=== PATIENT | male | born 1995 | race Caucasian/White ===

== ENCOUNTER 2022-01-25 20:43 | Emergency (ER) | payer MEDICAID ==
[~2022-01-25] VITALS: Ht 175.3 cm; Wt 112.0 kg
[~2022-01-25 20:43] MED LIST: ARIP5TAB15; METH10TA4
[2022-01-25 22:06] LABS: Basophils # (auto) 0.1 10 ^3/uL (0-0.2); Basophils % (auto) 0.6 % (0.0-2.0); Eosinophils # (auto) 0.1 10 ^3/uL (0-0.8); Eosinophils % (auto) 1.6 % (0.0-7.0); Hematocrit 49.3 % (41.0-53.0); Hemoglobin 17.1 g/dL (13.5-17.5); Lymphocytes # (auto) 2.5 10 ^3/uL (0.4-5.4); Lymphocytes % (auto) 29.5 % (10.0-50.0); Mean Corpuscular Hemoglobin 29.4 pg (28.0-32.0); Mean Corpuscular Hgb Conc. 34.7 g/dL (32.0-36.0); Mean Corpuscular Volume 84.5 fL (80.0-100.0); Monocytes # (auto) 0.6 10 ^3/uL (0-1.3); Monocytes % (auto) 7.5 % (0.0-12.0); Neutrophils # (auto) 5.2 10 ^3/uL (1.6-8.6); Neutrophils % (auto) 60.8 % (37.0-80.0); Nucleated Red Blood Cells % 0.6 %; Red Blood Cells 5.83 10^6/uL (4.5-5.90); Red Cell Distribution Width 13.8 % (11.8-14.3); White Blood Cell 8.5 10^3/uL (4.4-10.8)
[2022-01-25 22:21] LABS: Albumin 4.5 g/dL (3.4-5.0); Calcium 9.6 mg/dL (8.5-10.1); Magnesium 2.2 mg/dL (1.6-2.6); Potassium 4.1 mmol/L (3.5-5.1)
[2022-01-25 22:25] LABS: BUN/Creatinine Ratio 15.7; Bilirubin, Total 0.4 mg/dL (0.2-1.0)
[2022-01-25] MEDS ORDERED: PANTOPRAZOLE 40 MG TAB PO ONE (22:30)
[2022-01-25] MEDS ORDERED: ONDANSETRON ODT 4 MG TAB PO ONE (22:30)
[2022-01-25 22:46] LABS: INR 0.98 (0.9-1.15)
[2022-01-26] MEDS ORDERED: FAMO20TA10 PO (01:55)
[2022-01-26] MEDS ORDERED: ONDA-144 PO (01:55)
[2022-01-26 02:23] VITALS: BP 152/76
== END 2022-01-26 02:28 | disposition home or self-care (01) ==
LOC: ER 20:46
DX: R11.2 Nausea with vomiting, unspecified (principal); I10 Essential (primary) hypertension; J45.909 Unspecified asthma, uncomplicated; Z90.49 Acquired absence of other specified parts of digestive tract; Z79.899 Other long term (current) drug therapy
CPT/HCPCS: 36415; 71045; 71260; 74177; 80053; 83690; 83735; 84100; 84484; 85025; 85610; 86850; 86900; 86901; 93005; 99285; Q0162; Q9967

== ENCOUNTER 2023-04-06 17:12 | Emergency (ER) | payer MEDICAID ==
[~2023-04-06] VITALS: Ht 175.3 cm; Wt 120.4 kg
[2023-04-06 17:12] VITALS: BP 121/76; PULSE 106; RESP 16; TEMP 97.2
[~2023-04-06 17:12] MED LIST changes: +FAMO20TA10 PO; +ONDA-144 PO
[2023-04-06] MEDS ORDERED: ACE3T PO (20:36)
[2023-04-06 21:31] VITALS: O2SAT 93
== END 2023-04-06 22:40 | disposition home or self-care (01) ==
LOC: ER 17:12
DX: S72.422A Displaced fracture of lateral condyle of left femur, initial encounter for closed fracture (principal); S82.092A Other fracture of left patella, initial encounter for closed fracture; I10 Essential (primary) hypertension; E11.9 Type 2 diabetes mellitus without complications; J45.909 Unspecified asthma, uncomplicated; Z90.49 Acquired absence of other specified parts of digestive tract; Z79.899 Other long term (current) drug therapy; W18.39XA Other fall on same level, initial encounter; Y93.64 Activity, baseball; Y92.89 Other specified places as the place of occurrence of the external cause; Y99.8 Other external cause status
CPT/HCPCS: 29505; 73562; 73700

== ENCOUNTER 2023-06-28 07:22 | Inpatient (IN) | payer MEDICAID ==
[2023-06-23 14:03] LABS: Urine Bacteria None Seen /hpf (None Seen)
[2023-06-23 14:07] LABS: Basophils # (auto) 0.1 10 ^3/uL (0-0.2); Basophils % (auto) 1.2 % (0.0-2.0); Eosinophils # (auto) 0.1 10 ^3/uL (0-0.8); Eosinophils % (auto) 1.9 % (0.0-7.0); Hematocrit 48.3 % (41.0-53.0); Hemoglobin 16.2 g/dL (13.5-17.5); Lymphocytes # (auto) 2.4 10 ^3/uL (0.4-5.4); Lymphocytes % (auto) 33.7 % (10.0-50.0); Mean Corpuscular Hemoglobin 28.3 pg (28.0-32.0); Mean Corpuscular Hgb Conc. 33.6 g/dL (32.0-36.0); Mean Corpuscular Volume 84.2 fL (80.0-100.0); Monocytes # (auto) 0.5 10 ^3/uL (0-1.3); Monocytes % (auto) 7.5 % (0.0-12.0); Neutrophils % (auto) 55.7 % (37.0-80.0); Nucleated Red Blood Cells % 0.1 %; Red Blood Cells 5.74 10^6/uL (4.5-5.90); Red Cell Distribution Width 14.2 % (11.8-14.3); White Blood Cell 7.2 10^3/uL (4.4-10.8)
[2023-06-23 14:09] LABS: Urine Blood Negative /uL (Negative); Urine Clarity Clear (Clear); Urine Color Yellow (Yellow); Urine Mucus FEW (None Seen); Urine Protein, UAD 1+ (Negative); Urine Specific Gravity 1.031 (1.001-1.035); Urine Urobilinogen Normal (Negative); Urine WBC 1 /hpf (0 - 3); Urine pH 5.5 (5.0-9.0)
[2023-06-23 14:22] LABS: INR 0.99 (0.9-1.15); Partial Thromboplastin Time 29.6 SEC (24.5-34.5); Prothrombin Time 10.5 sec (9.3-11.8)
[2023-06-23 14:43] LABS: Alanine Aminotransferase 77 U/L (7-40); Albumin 4.8 g/dL (3.2-4.8); Alkaline Phosphatase 53 U/L (46-116); Anion Gap 4 (5-15); Aspartate Aminotransferase 34 U/L (13-40); BUN/Creatinine Ratio 12.7 (10.0-20.0); Bilirubin, Total 0.6 mg/dL (0.2-1.0); Blood Urea Nitrogen 13 mg/dL (9-23); Calcium 10.2 mg/dL (8.5-10.1); Carbon Dioxide 30 mmol/L (20-30); Chloride 106 mmol/L (98-107); Glucose 88 mg/dL (74-106); Potassium 4.5 mmol/L (3.5-5.1); Sodium 140 mmol/L (136-145); Total Protein 7.2 g/dL (5.7-8.2)
[~2023-06-28] VITALS: Ht 175.3 cm; Wt 116.1 kg
[~2023-06-28 07:22] MED LIST changes: -ARIP5TAB15; +BREX1TAB2 PO; -FAMO20TA10 PO; +LAM100T PO; +LEVE500T40 PO; -METH10TA4; -ONDA-144 PO; +PAR20T PO; +QUET50TA PO
[2023-06-28] MEDS ORDERED: fentaNYL CITRATE 100 MCG/2 ML VL ONE ×2 (09:00→09:01)
[2023-06-28] MEDS: ROPIVACAINE 0.5% (5MG/ML) 20ML AMPULE IJ ONE (09:15)
[2023-06-28] MEDS: ceFAZolin 2 GM/D5W50ml 50 ML IV ONE (09:31)
[2023-06-28] MEDS: EPINEPHrine HCL 1 MG/1 ML AMP ONE (10:19)
[2023-06-28] MEDS: BACITRACIN TOP OINT 1 UD PKG TOP ONE (11:50)
[2023-06-28] MEDS: BUPIVACAINE 0.25% INJ 50ML VIAL ONE (12:52)
[2023-06-28] MEDS ORDERED: MEPERIDINE HCL (25 MG/ML) 1ML VIAL ONE (12:54)
[2023-06-28] MEDS ORDERED: ACETAMINOPHEN 325 MG TAB PO PRN (13:00)
[2023-06-28 13:07] VITALS: RESP 16; O2SAT 100
[2023-06-28] MEDS: HYDROcodone-ACET 5/325MG TAB PO PRN (13:50)
[2023-06-28] MEDS ORDERED: MEPERIDINE HCL (25 MG/ML) 1ML VIAL IV PRN (14:15)
[2023-06-28] MEDS ORDERED: ONDANSETRON HCL 4 MG/2 ML VIAL IV ONE (14:15)
[2023-06-28] MEDS: HYDROmorphone HCL 2 MG/ML VL/or syr IV PRN ×2 (14:36→17:05)
[2023-06-28] MEDS ORDERED: NITROGLYCERIN 0.4 MG SL TAB SL PRN (15:45)
[2023-06-28] MEDS ORDERED: MORPHINE SULFATE INJ 2 MG/ml SYRG IV PRN (15:45)
[2023-06-28] MEDS ORDERED: hydrALAZINE HCL 20 MG/ML VL IV PRN (15:45)
[2023-06-28 16:05] VITALS: BP 148/96; PULSE 110; RESP 18; TEMP 98.6; O2SAT 94
[2023-06-28] MEDS: ONDANSETRON HCL 4 MG/2 ML VIAL IV PRN (18:48)
[2023-06-28 20:00] VITALS: PULSE 70; RESP 18; O2SAT 94
[2023-06-28 21:00] VITALS: BP 138/85; PULSE 70; RESP 18; TEMP 97.4; O2SAT 94
[2023-06-28] MEDS: levETIRAcetam 500 MG TAB PO SCH (21:43)
[2023-06-28] MEDS: LACTATED RINGER'S 1,000 ML IV SCH (21:44)
[2023-06-29] VITALS (7 sets, daily range): BP systolic 106–159; BP diastolic 74–80; PULSE 58–86; RESP 17–18; TEMP 36.6; O2SAT 94–100
[2023-06-29] MEDS ORDERED: MORPHINE SULFATE INJ 2 MG/ml SYRG IV PRN (06:30)
[2023-06-29] MEDS: HYDROmorphone HCL 2 MG/ML VL/or syr IV PRN (11:17)
[2023-06-29] MEDS ORDERED: levETIRAcetam 500 MG TAB PO SCH (22:00)
[2023-06-30] MEDS ORDERED: PARoxetine 20 MG TAB PO SCH (10:00)
== END 2023-06-29 14:40 | disposition home or self-care (01) | DRG 326 ==
LOC: SUR 07:22 → OVERFLOW 15:33 → CENTRAL 16:48
PROVIDERS: ADMIT Internal Medicine; ATTEND Internal Medicine
PROC: 0SJD4ZZ Inspection of Left Knee Joint, Percutaneous Endoscopic Approach (ICD-10-PCS; 2023-06-28)
PROC: 0SRD0NZ Replacement of Left Knee Joint with Patellofemoral Synthetic Substitute, Open Approach (ICD-10-PCS; principal; 2023-06-28 10:45)
DX: M22.42 Chondromalacia patellae, left knee (principal); E66.9 Obesity, unspecified; M23.52 Chronic instability of knee, left knee; F31.9 Bipolar disorder, unspecified; I10 Essential (primary) hypertension; G47.30 Sleep apnea, unspecified; J45.909 Unspecified asthma, uncomplicated; Z68.37 Body mass index [BMI] 37.0-37.9, adult; Z88.8 Allergy status to other drugs, medicaments and biological substances
CPT/HCPCS: 36415; 73560; 76000; 80053; 81001; 85025; 85610; 85730; 93005; C1713; G0378; J0171; J2405; J3490

== ENCOUNTER 2023-07-02 14:52 | Emergency (ER) | payer MEDICAID ==
[~2023-07-02] VITALS: Ht 175.3 cm; Wt 115.4 kg
[~2023-07-02 14:52] MED LIST changes: -LAM100T PO
[2023-07-02] MEDS: LACTULOSE 20Gm/30ML SOLN PO ONE (15:53)
[2023-07-02] MEDS ORDERED: LACT10SO3 PO (15:58)
[2023-07-02] MEDS ORDERED: IBUP-1456 PO (15:58)
[2023-07-02] MEDS ORDERED: MAGNESIUM CITRATE SOLUTION 300 ML BTL PO ONE (16:00)
[2023-07-02 16:14] VITALS: BP 132/81; PULSE 75; RESP 18; TEMP 98.7; O2SAT 97
== END 2023-07-02 16:16 | disposition home or self-care (01) ==
LOC: ER 14:52
DX: K59.00 Constipation, unspecified (principal); I10 Essential (primary) hypertension; E11.9 Type 2 diabetes mellitus without complications; J45.909 Unspecified asthma, uncomplicated; F41.9 Anxiety disorder, unspecified; F15.90 Other stimulant use, unspecified, uncomplicated; Z98.890 Other specified postprocedural states; Z88.8 Allergy status to other drugs, medicaments and biological substances; Z91.040 Latex allergy status; Z79.899 Other long term (current) drug therapy
CPT/HCPCS: 74018

== ENCOUNTER 2023-08-12 00:22 | Emergency (ER) | payer MEDICAID ==
[~2023-08-12] VITALS: Ht 175.3 cm; Wt 113.6 kg
[~2023-08-12 00:22] MED LIST changes: +IBUP-1456 PO; +LACT10SO3 PO
[2023-08-12 00:35] VITALS: BP 125/76; PULSE 117; RESP 18; TEMP 99.7; O2SAT 97
[2023-08-12] MEDS: KETOROLAC TROMETH 60MG/2ML VIAL IM ONE (01:29)
[2023-08-12] MEDS: ACETAMINOPHEN 500 MG TAB PO ONE (01:29)
[2023-08-12] MEDS: ONDANSETRON ODT 4 MG TAB PO ONE (01:39)
[2023-08-12] MEDS ORDERED: IBUP-1455 PO (02:13)
[2023-08-12] MEDS ORDERED: ACET500T58 PO (02:13)
== END 2023-08-12 02:29 | disposition home or self-care (01) ==
LOC: ER 00:22
DX: L55.0 Sunburn of first degree (principal); J45.909 Unspecified asthma, uncomplicated; E11.9 Type 2 diabetes mellitus without complications; I10 Essential (primary) hypertension; F12.10 Cannabis abuse, uncomplicated; Z91.040 Latex allergy status
CPT/HCPCS: 16000; 99283; J1885; Q0162

== ENCOUNTER 2023-08-14 22:10 | Emergency (ER) | payer MEDICAID ==
[~2023-08-14] VITALS: Ht 175.3 cm; Wt 119.2 kg
[~2023-08-14 22:10] MED LIST changes: +ACET500T58 PO; +IBUP-1455 PO
[2023-08-15 00:50] VITALS: BP 136/87; PULSE 68; RESP 18; TEMP 98.5; O2SAT 98
[2023-08-15] MEDS: SODIUM CHLORIDE 0.9% 1,000 ML IV ONE (01:07)
== END 2023-08-15 01:00 | disposition home or self-care (01) ==
LOC: ER 22:10
DX: T20.10XD Burn of first degree of head, face, and neck, unspecified site, subsequent encounter (principal); T21.11XD Burn of first degree of chest wall, subsequent encounter; T21.1 Burn of first degree of trunk; T22.10XD Burn of first degree of shoulder and upper limb, except wrist and hand, unspecified site, subsequent encounter; T31.0 Burns involving less than 10% of body surface; E86.0 Dehydration; I10 Essential (primary) hypertension; E11.9 Type 2 diabetes mellitus without complications; F41.9 Anxiety disorder, unspecified; J45.909 Unspecified asthma, uncomplicated; F15.90 Other stimulant use, unspecified, uncomplicated; Z98.890 Other specified postprocedural states; Z91.040 Latex allergy status; Z79.899 Other long term (current) drug therapy; Z88.8 Allergy status to other drugs, medicaments and biological substances; X08.8XXD Exposure to other specified smoke, fire and flames, subsequent encounter
CPT/HCPCS: 96360; 99283; J7030

== ENCOUNTER 2023-10-15 13:04 | Emergency (ER) | payer MEDICAID ==
[~2023-10-15] VITALS: Ht 175.3 cm; Wt 119.7 kg
[2023-10-15] MEDS: KETOROLAC TROMETH 60MG/2ML VIAL IM ONE (14:20)
[2023-10-15] MEDS ORDERED: BACL10TA PO (14:30)
[2023-10-15] MEDS ORDERED: PRED20TA2 PO (14:30)
[2023-10-15 14:35] VITALS: BP 146/78; PULSE 87; RESP 17; TEMP 98.7; O2SAT 97
== END 2023-10-15 14:38 | disposition home or self-care (01) ==
LOC: ER 13:04
DX: M54.41 Lumbago with sciatica, right side (principal); E66.01 Morbid (severe) obesity due to excess calories; I10 Essential (primary) hypertension; E11.9 Type 2 diabetes mellitus without complications; F41.9 Anxiety disorder, unspecified; J45.909 Unspecified asthma, uncomplicated; F15.90 Other stimulant use, unspecified, uncomplicated; Z68.39 Body mass index [BMI] 39.0-39.9, adult; Z98.890 Other specified postprocedural states; Z88.8 Allergy status to other drugs, medicaments and biological substances; Z91.040 Latex allergy status
CPT/HCPCS: 96372; 99283; J1885

== ENCOUNTER 2024-07-27 15:24 | Emergency (ER) | payer MEDICAID ==
[~2024-07-27] VITALS: Ht 175.3 cm; Wt 115.8 kg
[~2024-07-27 15:24] MED LIST changes: +BACL10TA PO; +FAMO20TA10 PO; +PRED20TA2 PO
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
[2024-07-27 16:23] LABS: Basophils # (auto) 0.1 10 ^3/uL (0-0.2); Eosinophils # (auto) 0.1 10 ^3/uL (0-0.8); Monocytes # (auto) 0.5 10 ^3/uL (0-1.3); Monocytes % (auto) 5.6 % (0.0-12.0); Neutrophils # (auto) 5.6 10 ^3/uL (1.6-8.6); White Blood Cell 8.3 10^3/uL (4.4-10.8)
[2024-07-27 16:32] LABS: Basophils % (auto) 0.6 % (0.0-2.0); Hematocrit 53.9 % (41.0-53.0); Hemoglobin 18.7 g/dL (13.5-17.5); Lymphocytes # (auto) 2.2 10 ^3/uL (0.4-5.4); Mean Corpuscular Hgb Conc. 34.7 g/dL (32.0-36.0); Mean Corpuscular Volume 83.7 fL (80.0-100.0); Neutrophils % (auto) 66.8 % (37.0-80.0); Nucleated Red Blood Cells % 0.2 %; Platelet Count (auto) 307 10^3/uL (140-450); Red Blood Cells 6.44 10^6/uL (4.5-5.90)
[2024-07-27 16:40] LABS: Alkaline Phosphatase 60 U/L (46-116); Anion Gap 12 (5-15); BUN/Creatinine Ratio 12.6 (10.0-20.0); Bilirubin, Total 0.9 mg/dL (0.2-1.0); Blood Urea Nitrogen 14 mg/dL (9-23); Carbon Dioxide 26 mmol/L (20-31); Chloride 105 mmol/L (98-107); Glucose 85 mg/dL (74-106); Potassium 3.8 mmol/L (3.5-5.1); Sodium 143 mmol/L (136-145); Total Protein 7.9 g/dL (5.7-8.2)
[2024-07-27 16:41] LABS: Alanine Aminotransferase 124 U/L (7-40); Aspartate Aminotransferase 78 U/L (<34); Calcium 11.1 mg/dL (8.7-10.4)
[2024-07-27 16:42] LABS: Albumin 5.6 g/dL (3.2-4.8)
[2024-07-27 16:50] VITALS: PULSE 80; RESP 16; O2SAT 94
[2024-07-27] MEDS: SODIUM CHLORIDE 0.9% 1,000 ML IV ONE (17:24)
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
[2024-07-27 17:49] LABS: Amphetamine Screen, Urine Neg (NEGATIVE); Barbiturate Scree,Urine Neg (NEGATIVE); Benzodiazephine Screen, Urine Neg (NEGATIVE); Cannabinoid Screen, Urine Pos (NEGATIVE); Cocaine Screen, Urine Neg (NEGATIVE); Opiate Scree,Urine Neg (NEGATIVE); Phencyclidine Screen, Urine Neg (NEGATIVE)
[2024-07-27] MEDS: LORazepam 0.5 MG TAB PO ONE (23:06)
[2024-07-27] MEDS: LIDOCAINE VISCOUS 2% 15ML UD PO ONE (23:06)
[2024-07-27] MEDS: MAALOX PLUS or MAALOX 30 ML PO ONE (23:06)
[2024-07-28] MEDS: ONDANSETRON HCL 4 MG/2 ML VIAL IV ONE (09:24)
[2024-07-28] MEDS: LORazepam 2MG/ML-1ML VIAL IV ONE (09:24)
[2024-07-28] MEDS: levETIRAcetam 500 MG TAB PO SCH (09:34)
[2024-07-28] MEDS: PARoxetine 20 MG TAB PO SCH (09:35)
[2024-07-28] MEDS: PANTOPRAZOLE 40 MG TAB PO ONE (14:41)
[2024-07-28] MEDS: LOPERAMIDE HCL 2 MG CAP/TAB PO ONE (14:41)
[2024-07-28] MEDS: ACETAMINOPHEN 325 MG TAB PO ONE (14:41)
[2024-07-28] MEDS: SODIUM CHLORIDE 0.9% 1,000 ML IV ONE (14:43)
[2024-07-28] MEDS ORDERED: ONDANSETRON HCL 4 MG/2 ML VIAL IV PRN (15:45)
[2024-07-28] MEDS ORDERED: LORazepam 2MG/ML-1ML VIAL IV PRN (15:45)
[2024-07-28] MEDS ORDERED: ACETAMINOPHEN 325 MG TAB PO PRN (15:45)
[2024-07-28 18:29] VITALS: BP 131/84; PULSE 67; RESP 18; TEMP 97.9; O2SAT 95
[2024-07-28] MEDS ORDERED: QUEtiapine FUMARATE 25 MG TAB PO SCH (22:00)
== END 2024-07-28 18:46 ==
LOC: ER 15:34
DX: R45.851 Suicidal ideations (principal); R79.89 Other specified abnormal findings of blood chemistry; I10 Essential (primary) hypertension; E11.9 Type 2 diabetes mellitus without complications; E78.5 Hyperlipidemia, unspecified; F31.9 Bipolar disorder, unspecified; F41.9 Anxiety disorder, unspecified; F43.10 Post-traumatic stress disorder, unspecified; J45.909 Unspecified asthma, uncomplicated; Z90.49 Acquired absence of other specified parts of digestive tract; Z79.899 Other long term (current) drug therapy
CPT/HCPCS: 36415; 80053; 80307; 80320; 84443; 85025; 96360; 96361; 99285; J2060; J2405; J7030

== ENCOUNTER 2024-09-28 11:44 | Emergency (ER) | payer MEDICAID ==
[~2024-09-28] VITALS: Ht 175.3 cm; Wt 113.5 kg
--- NOTE | 2024-09-28 12:25 | ED.PDOC ---
HPI (NEURO) HPI Comments THIS IS A 29 YEAR-OLD MALE, WITH A PMHX OF EPILEPSY AND ASTHMA, WHO PRESENTS TO THE ED WITH A CHIEF COMPLAINT OF HEADACHE WITH ASSOCIATED R NECK PAIN OF X4 DAYS AGO. PATIENT REPORTS HEAD "PRESSURE" RADIATING FROM THE RIGHT SIDE OF THE HEAD TO THE LEFT. PATIENT ADDITIONALLY REPORTS PRESSURE TO THE BACK OF EYES WITH LIGHT SENSITIVITY. PATIENT STATES HE TOOK IBUPROFEN WITH NO RELIEF. PT WENT TO URGENT CARE YESTERDAY AND GOT TORADOL PAIN INJECTION, NOT HELP. PATIENT HAS NO FURTHER COMPLAINTS AT THIS TIME. PATIENT DENIES FURTHER ASSOCIATED SYMPTOMS OF FEVER, CHILLS, LOC, DIZZINESS, OR N/V/D. PATIENT IS ALERT, ORIENTED X 4, AND HAS STEADY GAIT. Chief Complaint: Headache Time Seen by MD: 12:07 Primary Care Provider: Julio Nolacso Notes: Nurses Notes, Medications, Allergies Information Source: Patient Mode of Arrival: Ambulatory Severity: Moderate Headache Severity: Moderate Timing: Days Duration: Since onset, Days Prehospital treatment: None Headache Location: Generalized, Frontal, Parietal, Temporal Onset: At rest, With light exertion, With heavy exertion Circumstances: Spontaneous Associated Signs and Symptoms: Headache Past Medical History PAST MEDICAL HISTORY: Anxiety, Asthma, Depression, DM, HTN, Seizures Surgical History: Appendectomy Family History Family History: Reviewed,noncontributory to illness Social History Smoker: Non-Smoker Alcohol: Denies ETOH Use Drugs: Marijuana Lives In: Home Constitutional: reports: others (ANXIOUS ); denies: chills, diaphoresis, fatigue, fever, malaise, sweats, weakness EENTM: denies: blurred vision, double vision, ear bleeding, ear discharge, ear drainage, ear pain, ear ringing, eye pain, eye redness, hearing loss, mouth pain, mouth swelling, nasal discharge, nose bleeding, nose congestion, nose pain, photophobia, tearing, throat pain, throat swelling, voice changes, others Respiratory: denies: cough, hemoptysis, orthopnea, SOB at rest, shortness of breath, SOB with excertion, stridor, wheezing, others Cardiovascular: denies: chest pain, dizzy spells, diaphoresis, Dyspnea on exertion, edema, irregular heart beat, left arm pain, lightheadedness, palp itations, PND, syncope, others Gastrointestinal: reports: nausea; denies: abdomen distended, abdominal pain, blood streaked bowels, constipated, diarrhea, dysphagia, difficulty swallowing, hematemesis, melena, poor appetite, poor fluid intake, rectal bleeding, rectal pain, vomiting, others Genitourinary: denies: burning, dysuria, flank pain, frequency, hematuria, incontinence, penile discharge, penile sore, pain, testicle pain, testicle swelling, urgency, others Neurological: reports: headache; denies: dizziness, fainting, left sided numbness, left sided weakness, numbness, paresthesia, pre-existing deficit, right sided numbness, right sided weakness, seizure, speech problems, tingling, tremors, weakness, others Musculoskeletal: denies: back pain, gout, joint pain, joint swelling, muscle pain, muscle stiffness, neck pain, others Integumetry: denies: bruises, change in color, change in hair/nails, dryness, laceration, lesions, lumps, rash, wounds, others Allergic/Immunocompromised: denies: Difficulty Healing, Frequent Infections, Hives, Itching, others Hematologic/Lymphatic: denies: anemia, blood clots, easy bleeding, easy bruising, swollen glands, others Endocrine: denies: excessive hunger, excessive sweating, excessive thirst, excessive urination, flushing, intolerance to cold, intolerance to heat, unexplained weight gain, unexplained weight loss, others Psychiatric: denies: anxiety, bipolar disorder, depression, hopeless, panic disorder, schizophrenia, sleepless, suicidal, others All Other Systems: Reviewed and Negative Physical Exam General Appearance: Mild Distress, Obese, Other (ANXIOUS ) HEENT: Normal ENT Inspection, PERRL/EOMI, Pharynx Normal, TMs Normal Neck: Full Range of Motion, Non-Tender, Normal, Normal Inspection Respiratory: Chest Non-Tender, Lungs Clear, No Accessory Muscle Use, No Respiratory Distress, Normal Breath Sounds Cardiovascular: No Edema, No JVD, No Murmur, No Gallop, Normal Peripheral Pulses, Regular Rate/Rhythm Breast Exam: Deferred Gastrointestinal: No Organomegaly, Non Tender, No Pulsatile Mass, Normal Bowel Sounds, Soft Genitalia: Deferred Pelvic: Deferred Rectal: Deferred Extremities: No calf tenderness, Normal capillary refill, Normal inspection, Normal range of motion, Non-tender, No pedal edema Musculoskeletal : Apperance: Normal Neurologic: Alert, developer advisor II-XII nml as Tested, Headache, No Motor Deficits, Normal Affect, Normal Mood, No Sensory Deficits Cerebellar Function: Normal Reflexes: Normal Skin: Dry, Normal Color, Warm Peripheral Pulses: 2+ carotid (R), 2+ carotid (L) Lymphatic: No Adenopathy Was a procedure done? Was a procedure done?: No Differential Diagnosis (SZ) Seizure: Hyperventilation Headache: Cluster, Migraine, Intracerebral Hemorrhage, Mass Lesion, Sinusitis X-Ray, Labs, Meds, VS Vital Signs Date Time Temp Pulse Resp B/P (MAP) Pulse Ox O2 Delivery O2 Flow Rate FiO2 09/28/24 11:46 98.3 62 19 143/79 98 98.3 [place] [id number] Ph: [phone] DIAGNOSTIC IMAGING Diagnostic Imaging Report : [id number] Signed PATIENT: ELIUD HUYNH ACCT: [id number] UNIT: [id number] : 1995 LOC: ER ROOM / BED: / AGE / SEX: 29 / M ADM STATUS: REG ER SERVICE 1200 ORDERING PHYSICIAN: ADDIE ALBERTS PROCEDURE(s): HWOCT - HEAD WITHOUT CONTRAST REASON: RIGHT HEAD PAIN, HX OF SEIZURE ORDER NUMBER(s): [id number], ACCESSION NUMBER(s): [id number] EXAM: CT HEAD WITHOUT CONTRAST INDICATION: RIGHT HEAD PAIN, HX OF SEIZURE TECHNIQUE: CT of the head without intravenous contrast. Radiation Dose Information: CT Dose: CTDI volume is 53.25 mGy. Dose-length product is 863.9 mGy*cm The dose indicators for CT are the volume Computed Tomography (CT) Dose Index (CTDIvol) and the Dose Length Product (DLP), and are measured in units of mGy and mGy-cm, respectively. These indicators are not patient dose, but values generated from the CT scanner acquisition factors. The report includes radiation exposure data for exposures received during this examination. COMPARISON: None FINDINGS: There is no evidence of acute intracranial hemorrhage, extra-axial collection, mass effect, midline shift, herniation or hydrocephalus. The ventricles, sulci and cisterns are age appropriate. The thakur-white differentiation is intact. The visualized paranasal sinuses and mastoid air cells are clear. The surrounding soft tissues and osseous structures are unremarkable. IMPRESSION: No acute intracranial abnormality. X-Ray, Labs, Meds, VS Comment EXTERNAL MEDICAL RECORDS REVIEWED: [NONE] INDEPENDENT HISTORIANS: [NONE] SOCIAL DETERMINANTS OF HEALTH: [NONE] LABS ORDERED: NONE REVIEWED AND INTERPRETED RESULTS: NONE IMAGING ORDERED: HEAD CT WITHOUT CONTRAST TREATMENTS ORDERED: PT DECLINED PAIN MEDICATION ONLY RX. PROCEDURES PERFORMED: NONE CRITICAL CARE TIME: NONE I HAVE DISCUSSED THE PATIENT WITH THE ATTENDING PHYSICIAN, DR. MCCOY, AND HE AGREES WITH THE PATIENT'S PLAN OF CARE AND DISPOSITION. BASED ON HISTORY OF PRESENT ILLNESS, AND PHYSICAL EXAM, PATIENT WILL BE DISCHARGED HOME. DISCUSSED PLAN FOR DISCHARGE HOME WITH RX IMITREX 50MG. MEDICATION WARNINGS GIVEN. SHARED DECISION MAKING: DISCUSSED WITH PATIENT THAT THEIR WORKUP WAS NORMAL. PATIENT INSTRUCTED TO FOLLOW UP WITH PRIMARY CARE PROVIDER IN 1-2 DAYS FOR RE- EVALUATION OF SYMPTOMS. PATIENT VERBALIZES UNDERSTANDING TO RETURN TO ED FOR NEW OR WORSENING SYMPTOMS OR IF FOLLOW UP WITH PCP CANNOT BE OBTAINED. PATIENT FEELS COMFORTABLE GOING HOME AT THIS TIME. ALL QUESTIONS ADDRESSED AT TIME OF DISCHARGE. Images Reviewed?: Images reviewed and evaluated by me Time of 1ST Reevaluation: 13:00 Reevaluation 1ST: Improved Patient Education/Counseling: Diagnosis, Treatment, Need For Follow Up Family Education/Counseling: Diagnosis, Treatment, No Family Present Medical Screening: No EMC Exist At This Time Departure 1 Departure Time of Disposition: 13:10 Impression: Primary Impression: Migraine headache Qualified Codes: G43.909 - Migraine, unspecified, not intractable, without status migrainosus Disposition: HOME / SELF CARE / HOMELESS Condition: Stable Additional Instructions: FOLLOW-UP WITH PCP IN 1 TO 2 DAYS. TAKE MEDICATIONS PRESCRIBED. RETURN TO ED FOR ANY NEW OR WORSENING SYMPTOMS. e-Prescriptions Sumatriptan Succinate (Imitrex) 50 Mg Tab 50 MG PO BID, #20 TAB Prov: ADDIE ALBERTS 09/28/24 Discharged With: Self, Relative Critical Care Note Critical Care Time?: No Stability Stability form required: No Heart Score Heart Score: Heart Score Response (Comments) Value History N/A 0 EKG N/A 0 Age N/A 0 Risk Factors N/A 0 Troponin N/A 0 Total 0 I personally scribed for ADDIE ALBERTS ([email or web address]) on 09/28/24 at 12:25. Electronically submitted by Blanca Reynolds ([email or web address]). I personally scribed for ADDIE ALBERTS ([email or web address]) on 09/28/24 at 12:26. Electronically submitted by Blanca Reynolds ([email or web address]). I personally scribed for ADDIE ALBERTS ([email or web address]) on 09/28/24 at 12:43. Electronically submitted by Blanca Reynolds ([email or web address]). I personally scribed for ADDIE ALBERTS ([email or web address]) on 09/28/24 at 12:54. Electronically submitted by Blanca Reynolds ([email or web address]). ADDIE ALBERTS Sep 28, 2024 12:25
--- NOTE | 2024-09-28 12:41 | DVH ---
EXAM: CT HEAD WITHOUT CONTRAST INDICATION: RIGHT HEAD PAIN, HX OF SEIZURE TECHNIQUE: CT of the head without intravenous contrast. Radiation Dose Information: CT Dose: CTDI volume is 53.25 mGy. Dose-length product is 863.9 mGy*cm The dose indicators for CT are the volume Computed Tomography (CT) Dose Index (CTDIvol) and the Dose Length Product (DLP), and are measured in units of mGy and mGy-cm, respectively. These indicators are not patient dose, but values generated from the CT scanner acquisition factors. The report includes radiation exposure data for exposures received during this examination. COMPARISON: None FINDINGS: There is no evidence of acute intracranial hemorrhage, extra-axial collection, mass effect, midline s hift, herniation or hydrocephalus. The ventricles, sulci and cisterns are age appropriate. The thakur-white differentiation is intact. The visualized paranasal sinuses and mastoid air cells are clear. The surrounding soft tissues and osseous structures are unremarkable. IMPRESSION: No acute intracranial abnormality.
[2024-09-28] MEDS ORDERED: SUMA50TA2 PO (12:55)
[2024-09-28 13:06] VITALS: BP 128/91; PULSE 73; RESP 16; TEMP 98.2; O2SAT 96
== END 2024-09-28 13:08 | disposition home or self-care (01) ==
LOC: ER 11:44
DX: G43.909 Migraine, unspecified, not intractable, without status migrainosus (principal); E11.9 Type 2 diabetes mellitus without complications; I10 Essential (primary) hypertension; J45.909 Unspecified asthma, uncomplicated; Z90.49 Acquired absence of other specified parts of digestive tract
CPT/HCPCS: 70450

== ENCOUNTER 2024-09-29 18:39 | Emergency (ER) | payer MEDICAID ==
[~2024-09-29] VITALS: Ht 175.3 cm; Wt 113.2 kg
[~2024-09-29 18:39] MED LIST changes: +SUMA50TA2 PO
--- NOTE | 2024-09-29 18:51 | ECG ---
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
--- NOTE | 2024-09-29 19:16 | ED.PDOC ---
History of Present Illness HPI Comments 29-year-old male who came to ER for chest pains. Patient has a history of hypertension, asthma and seizures. Patient was seen here yesterday for complaints of headaches and right-sided neck, diagnosed with cluster headaches. Patient coming with similar complaints, now with lower abdominal pain for the past 3 days with nausea and diarrhea. Few hours ago patient started experiencing diffuse chest pains as well, worsens with deep breathing. Chief Complaint: Chest Pain Time Seen by MD: 19:16 Primary Care Provider: Julio Reviewed Notes: Nurses Notes Allergies: Coded Allergies: Latex (Unverified Allergy, Mild, hives, 06/23/23) Lisdexamfetamine (Unverified Adverse Reaction, Severe, Blurry vision, loss of vision, 06/23/23) Aripiprazole (Unverified Adverse Reaction, Intermediate, Drowsy, 06/23/23) Home Meds Active Scripts Sumatriptan Succinate (Imitrex) 50 Mg Tab, 50 MG PO BID, #20 TAB Prov:ADDIE ALBERTS 09/28/24 Famotidine (PEPCID TABLET) 20 Mg Tb, 1 TAB PO BID PRN, #60 TAB 5 Refills Prov:GIGI US MD 07/24/24 Prednisone (Prednisone) 20 Mg Tab, 40 MG PO DAILY, #24 TAB Prov:ADDIE ALBERTS 10/15/23 Baclofen (Baclofen) 10 Mg Tab, 10 MG PO BID, #20 TAB Prov:ADDIE ALBERTS 10/15/23 Ibuprofen Micronized (Ibuprofen) 800 Mg Tab, 800 MG PO Q8HP PRN, #20 TAB Prov:SHANNON HUGHES PAC 08/12/23 Acetaminophen (Acetaminophen) 500 Mg Tab, 500 MG PO Q4HP PRN, #30 TAB Prov:SHANNON HUGHES PAC 08/12/23 Ibuprofen (Ibuprofen) 800 Mg Tab, 1 TAB PO TID, #30 TAB Prov:ADDIE ALBERTS 07/02/23 Lactulose (Lactulose) 10 Gm/15 Ml Елена, 30 ML PO BID PRN, #350 ML Prov:ADDIE ALBERTS 07/02/23 Reported Medications Quetiapine Fumerate (Seroquel) 50 Mg Tab, 50 MG PO HS, TAB 06/23/23 Levetiracetam (Keppra) 500 Mg Tab, 750 MG PO BID, TAB 06/23/23 Paroxetine (PAXIL TABLET) 20 Mg Tb, 10 MG PO BID, TAB 06/23/23 Brexpiprazole (Rexulti) 0.5 Mg Tab, 0.5 MG PO HS, TAB 06/23/23 Information Source: Patient Mode of Arrival: Ambulatory Severity: Moderate Timing: Hours Duration: Intermittent Past Medical History PAST MEDICAL HISTORY: Anxiety, Asthma, Depression, HTN, Seizures Surgical History: Appendectomy Family History Family History: Reviewed,noncontributory to illness Social History Smoker: Non-Smoker Alcohol: Denies ETOH Use Drugs: Marijuana Lives In: Home Constitutional: denies: chills, diaphoresis, fatigue, fever, malaise, sweats, weakness, others EENTM: denies: blurred vision, double vision, ear bleeding, ear discharge, ear drainage, ear pain, ear ringing, eye pain, eye redness, hearing loss, mouth jo n, mouth swelling, nasal discharge, nose bleeding, nose congestion, nose pain, photophobia, tearing, throat pain, throat swelling, voice changes, others Respiratory: denies: cough, hemoptysis, orthopnea, SOB at rest, shortness of breath, SOB with excertion, stridor, wheezing, others Cardiovascular: reports: chest pain; denies: dizzy spells, diaphoresis, Dyspnea on exertion, edema, irregular heart beat, left arm pain, lightheadedness, palpitations, PND, syncope, others Gastrointestinal: reports: abdominal pain, diarrhea, nausea; denies: abdomen distended, blood streaked bowels, constipated, dysphagia, difficulty swallowing, hematemesis, melena, poor appetite, poor fluid intake, rectal bleeding, rectal pain, vomiting, others Genitourinary: denies: burning, dysuria, flank pain, frequency, hematuria, incontinence, penile discharge, penile sore, pain, testicle pain, testicle swelling, urgency, others Neurological: reports: headache; denies: dizziness, fainting, left sided numbness, left sided weakness, numbness, paresthesia, pre-existing deficit, right sided numbness, right sided weakness, seizure, speech problems, tingling, tremors, weakness, others Musculoskeletal: reports: neck pain; denies: back pain, gout, joint pain, joint swelling, muscle pain, muscle stiffness, others Integumetry: denies: bruises, change in color, change in hair/nails, dryness, laceration, lesions, lumps, rash, wounds, others Allergic/Immunocompromised: denies: Difficulty Healing, Frequent Infections, Hives, Itching, others Hematologic/Lymphatic: denies: anemia, blood clots, easy bleeding, easy bruis ing, swollen glands, others Endocrine: denies: excessive hunger, excessive sweating, excessive thirst, exc essive urination, flushing, intolerance to cold, intolerance to heat, unexplained weight gain, unexplained weight loss, others Psychiatric: denies: anxiety, bipolar disorder, depression, hopeless, panic disorder, schizophrenia, sleepless, suicidal, others Physical Exam General Appearance: No Apparent Distress, Normal HEENT: Normal ENT Inspection, Pharynx Normal, TMs Normal Neck: Full Range of Motion, Non-Tender, Normal, Normal Inspection Respiratory: Chest Non-Tender, Lungs Clear, No Accessory Muscle Use, No Resp iratory Distress, Normal Breath Sounds Cardiovascular: No Edema, No JVD, No Murmur, No Gallop, Normal Peripheral Pulses, Regular Rate/Rhythm Breast Exam: Deferred Gastrointestinal: No Organomegaly, Non Tender, No Pulsatile Mass, Normal Bowel Sounds, Soft Genitalia: Deferred Pelvic: Deferred Rectal: Deferred Extremities: No calf tenderness, Normal capillary refill, Normal inspection, Normal range of motion, Non-tender, No pedal edema Musculoskeletal : Apperance: Normal Neurologic: Alert, ammunition storage superintendent II-XII nml as Tested, No Motor Deficits, Normal Affect, Normal Mood, No Sensory Deficits Cerebellar Function: Normal Reflexes: Normal Skin: Dry, Normal Color, Warm Lymphatic: No Adenopathy Was a procedure done? Was a procedure done?: No Differential Dx Considerations may include: Anemia. Migraine headaches. Gastroenteritis. Chest pain. Musculoskeletal pain. Costochondritis X-Ray, Labs, Meds, VS Vital Signs Date Time Temp Pulse Resp B/P (MAP) Pulse Ox O2 Delivery O2 Flow Rate FiO2 09/29/24 20:48 88 17 98 Room Air 09/29/24 20:48 98.3 88 17 124/84 (97) 98 98.3 09/29/24 20:00 57 09/29/24 18:49 63 09/29/24 18:42 98.1 70 18 127/81 100 98.1 Lab Test 09/29/24 19:55 09/29/24 18:56 Range/Units Troponin I High Sensitivity < 3 L < 3 L </=54 ng/L White Blood Count 9.2 4.4-10.8 10^3/uL Red Blood Count 5.95 H 4.5-5.90 10^6/uL Hemoglobin 17.2 13.5-17.5 g/dL Hematocrit 50.3 41.0-53.0 % Mean Corpuscular Volume 84.5 80.0-100.0 fL Mean Corpuscular Hemoglobin 28.9 28.0-32.0 pg Mean Corpuscular Hemoglobin Concent 34.2 32.0-36.0 g/dL Red Cell Distribution Width 14.5 H 11.8-14.3 % Platelet Count 320 140-450 10^3/uL Mean Platelet Volume 6.9 6.9-10.8 fL Neutrophils (%) (Auto) 61.0 37.0-80.0 % Lymphocytes (%) (Auto) 31.2 10.0-50.0 % Monocytes (%) (Auto) 5.9 0.0-12.0 % Eosinophils (%) (Auto) 1.2 0.0-7.0 % Basophils (%) (Auto) 0.7 0.0-2.0 % Neutrophils # (Auto) 5.6 1.6-8.6 10 ^3/uL Lymphocytes # (Auto) 2.9 0.4-5.4 10 ^3/uL Monocytes # (Auto) 0.5 0-1.3 10 ^3/uL Eosinophils # (Auto) 0.1 0-0.8 10 ^3/uL Basophils # (Auto) 0.1 0-0.2 10 ^3/uL Nucleated Red Blood Cells 0.1 % Sodium Level 142 136-145 mmol/L Potassium Level 4.1 3.5-5.1 mmol/L Chloride Level 107 98-107 mmol/L Carbon Dioxide Level 25 20-31 mmol/L Anion Gap 10 5-15 Blood Urea Nitrogen 10 9-23 mg/dL Creatinine 1.05 0.700-1.30 mg/dL Glomerular Filtration Rate Calc 100 >90 mL/min BUN/Creatinine Ratio 9.5 L 10.0-20.0 Serum Glucose 90 74-106 mg/dL Calcium Level 10.0 8.7-10.4 mg/dL Current Medications Medications (Trade) Dose Ordered Sig/Emelina Route Start Time Stop Time Status Last Admin Acetaminophen (Tylenol Tablet) 650 mg ONCE ONCE PO 09/29/24 19:15 09/29/24 19:16 DC 09/29/24 20:47 Procedure: XY KUB ABDOMEN SINGLE VIEW Study Date and Requested Time: 09/29/2024 07:13 PM Technique: 2 views of the abdomen and pelvis available for evaluation. History: r/o constipation Comparison: XY KUB ABDOMEN SINGLE VIEW on DOS: 07/02/23 Findings/ Impression: Nonspecific bowel gas pattern. No evidence of bowel obstruction or ileus. Small to moderate amount of fecal material within the colon. No abnormal calcifications are noted. No evidence of acute osseous abnormalities. The lung bases are outside the field of view. T RADIOGRAPH Indication: cp Technique: Single frontal view of the chest was obtained Comparison: XY CHEST PORTABLE on DOS: 02/13/23, CHEST XRAY 1 VIEW on DOS: 01/25/22, CXR1 on DOS: 01/25/22 FINDINGS: Lines and Tubes: None Lungs: No focal consolidation. Pleura: No effusion. No pneumothorax. Cardiomediastinal contours: Unremarkable Bones: No acute osseous abnormality. IMPRESSION: No acute cardiopulmonary disease. Time of 1ST Reevaluation: 19:13 Reevaluation 1ST: Unchanged Time of 2ND Reevaluation: 21:12 Reevaluation 2ND: Improved Patient Education/Counseling: Diagnosis, Treatment, Prognosis, Need For Follow Up Family Education/Counseling: No Family Present Comments Patient reports he feels better he does not want to stay any longer he wants to be discharged right now. His cardiac workup is unremarkable. Patient is stable to follow up with his primary doctor SEPSIS Sepsis Screen Date sepsis recognized/suspect: Sep 29, 2024 Time Sepsis recognized/suspect: 1844 Recent Procedure: No On Antibiotic Therapy: No Respiratory Rate >20: No Heart Rate >90: No Temp<36 C (96.8 F) or >38.3 C: No SBP <90 or MAP <65 mmHG: No New Acute Mental Status Change: No Is the patient on CPAP, BIPAP,: No Physician Orders Electrocardigram (09/29/24 19:41) Electrocardigram (09/29/24 21:41) Chest Xray 1 View (09/29/24 19:12) Kub Abdomen Single View (09/29/24 19:12) Vital Signs Date Time Temp Pulse Resp B/P (MAP) Pulse Ox O2 Delivery O2 Flow Rate FiO2 09/29/24 20:48 88 17 98 Room Air 09/29/24 20:48 98.3 88 17 124/84 (97) 98 98.3 09/29/24 20:00 57 09/29/24 18:49 63 09/29/24 18:42 98.1 70 18 127/81 100 98.1 Laboratory Tests Test 09/29/24 18:56 White Blood Count 9.2 10^3/uL (4.4-10.8) Medications Medications Dose Ordered Sig/Emelina Route Start Time Stop Time Status Last Admin Dose Admin Acetaminophen 650 mg ONCE ONCE PO 09/29/24 19:15 09/29/24 19:16 DC 09/29/24 20:47 Departure 1 Departure Time of Disposition: 21:13 Impression: Primary Impression: Chest pain Disposition: HOME / SELF CARE / HOMELESS Condition: Stable Discharged With: Self Critical Care Note Critical Care Time?: No Stability Stability form required: No Heart Score Heart Score: Heart Score Response (Comments) Value History Slightly Suspicious 0 EKG Normal 0 Age <45 0 Risk Factors 1 or 2 risk factors 1 Troponin Normal limit 0 Total 1 I personally scribed for JIMBO ORTEZ MD ([email or web address]) on 09/29/24 at 19:16. Electronically submitted by Danis Gordillo ([employer]). I personally scribed for JIMBO ORTEZ MD ([email or web address]) on 09/29/24 at 20:07. Electronically submitted by Danis Gordillo ([employer]). JIMBO ORTEZ MD Sep 29, 2024 19:16
[2024-09-29 19:29] LABS: Hematocrit 50.3 % (41.0-53.0); Hemoglobin 17.2 g/dL (13.5-17.5); Mean Corpuscular Hemoglobin 28.9 pg (28.0-32.0); Mean Corpuscular Volume 84.5 fL (80.0-100.0); Nucleated Red Blood Cells % 0.1 %
[2024-09-29 19:30] LABS: Chloride 107 mmol/L (98-107); Potassium 4.1 mmol/L (3.5-5.1); Sodium 142 mmol/L (136-145)
[2024-09-29 19:31] LABS: Anion Gap 10 (5-15); Calcium 10.0 mg/dL (8.7-10.4); Carbon Dioxide 25 mmol/L (20-31)
[2024-09-29 19:36] LABS: BUN/Creatinine Ratio 9.5 (10.0-20.0); Blood Urea Nitrogen 10 mg/dL (9-23); Glucose 90 mg/dL (74-106)
--- NOTE | 2024-09-29 19:46 | DVH ---
CHEST RADIOGRAPH Indication: cp Technique: Single frontal view of the chest was obtained Comparison: XY CHEST PORTABLE on DOS: 02/13/23, CHEST XRAY 1 VIEW on DOS: 01/25/22, CXR1 on DOS: FINDINGS: Lines and Tubes: None Lungs: No focal consolidation. Pleura: No effusion. No pneumothorax. Cardiomediastinal contours: Unremarkable Bones: No acute osseous abnormality. IMPRESSION: No acute cardiopulmonary disease.
--- NOTE | 2024-09-29 19:48 | DVH ---
Procedure: XY KUB ABDOMEN SINGLE VIEW Study Date and Requested Time: 09/29/2024 07:13 PM Technique: 2 views of the abdomen and pelvis available for evaluation. History: r/o constipation Comparison: XY KUB ABDOMEN SINGLE VIEW on DOS: 07/02/23 Findings/ Impression: Nonspecific bowel gas pattern. No evidence of bowel obstruction or ileus. Small to moderate amount of fecal material within the colon. No abnormal calcifications are noted. No evidence of acute osseous abnormalities. The lung bases are outside the field of view.
[2024-09-29] MEDS: ACETAMINOPHEN 325 MG TAB PO ONE (20:47)
[2024-09-29 21:53] VITALS: BP 122/78; PULSE 82; RESP 18; TEMP 98; O2SAT 98
--- NOTE | 2024-10-01 07:40 | ECG ---
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
== END 2024-09-29 21:55 | disposition home or self-care (01) ==
LOC: ER 18:39
DX: R07.89 Other chest pain (principal); F12.90 Cannabis use, unspecified, uncomplicated; F41.9 Anxiety disorder, unspecified; F32.A Depression, unspecified; I10 Essential (primary) hypertension; Z79.899 Other long term (current) drug therapy; Z79.1 Long term (current) use of non-steroidal anti-inflammatories (NSAID); Z79.52 Long term (current) use of systemic steroids; Z90.49 Acquired absence of other specified parts of digestive tract
CPT/HCPCS: 36415; 71045; 74018; 80048; 84484; 85025; 93005

== ENCOUNTER 2024-10-05 11:41 | Emergency (ER) | payer MEDICAID ==
[~2024-10-05] VITALS: Ht 175.3 cm; Wt 109.7 kg
--- NOTE | 2024-10-05 12:25 | ED.PDOC ---
GI ASSESSMENT HPI Comments HPI: 29M presents to the ER w/ the c/c of right upper quadrant ABD pain. Pt reports on having constant ABD pain since 09/26/24 on the RUQ and went to the ER in [place] in [place] for which an US was done and the pt was diagnosed w/ Gallstones 2 days ago on ultrasound. Pt states that the nurses at the ER said that if the pain consists to go to the ER. The Pt notes on still having the pain and is radiating to the LUQ. Denies any other acute symptoms. Past Medical history: Anxiety, Asthma, High Lipids, Depression, HTN, SZ Past Surgical history: Appendectomy Medications: Social History: Denies smoking, ETOH, and drug use. Allergies: HPI: Poor Historian. REVIEW OF SYSTEMS: CONSTITUTIONAL: Denies acute: fever, diaphoresis, chills, generalized weakness. HEAD: Denies acute: headache, photophobia Eyes: Denies acute: Double vision, vision loss, eye pain, eye discharge. EARS: Denies acute: tinnitus, hearing loss, ear discharge, ear pain, THROAT: Denies acute: sore throat, swelling, difficulty swallowing , pain with swallowing, change in voice. NECK: Denies acute: neck pain, neck swelling, stiff neck. HEART: Denies acute : chest pain, palpitations, LUNGS: Denies acute: SOB, wheezing, cough, hemoptysis ABDOMEN: Denies acute: Nausea, Vomiting, diarrhea, melena , hematemesis, hematochezia SKIN: Denies acute: rash, redness, lesions, itchiness. EXTREMITIES: Denies acute: calf pain, numbness, tingling, weakness, denies pain in extremity. Denies acute: Low back pain. Neuro: Denies acute: focal neurological deficit, motor or sensory focal neurological deficit, tremors, seizure like activity, confusion, dizziness, change in mental status, loss of bowel or bladder function, cauda equina like symptoms. : Denies acute: dysuria, hematuria, flank pain, increase in urinary frequency. PSYCH: Denies acute: hallucination, suicidal ideation, homicidal ideation. PHYSICAL EXAM: General: -----mild---acute distress, awake and alert. Head: normocephalic, atraumatic. Neck: supple, trachea is midline, no swelling. Throat: Normal phonation. Eyes:, no erythema, no purulent discharge, no proptosis, no icterus. Heart: regular rate, regular rhythm, no significant murmur appreciated. Lungs: no apparent respiratory distress, Able to speak in full sentences. No wheezing, no rhonchi, no crackles. No stridors Clear to auscultation bilaterally. Abdomen: Right upper quadrant tender to palpation, non distended, soft, no guarding, no rebound, + bowel sounds. Obese Neuro: Awake, Alert, oriented to name, self, situation, follows commands GCS=15. Speech is normal. Skin: no petechia, no purpura, no cyanosis, non-pale, not jaundice. Lower extremities: --no - Pitting edema no deformity, no focal swelling, no calf TTP. Makes eye contact. moves all four extremities. Face: no apparent facial droop. Ambulating in the ED independently. ED COURSE: DISCLAIMER: This medical document was created using an electronic medical record system with voice recognition software and computerized dictation system. Although this document has been carefully reviewed, there might still be some phonetic and typographical errors. Occasional wrong-word or "sound-alike" substitutions may have occurred due to the inherent limitations of voice recognition software. These areas are purely typographical due to imperfections of the software programs and do not reflect any compromise in the patient's medical care. Please read the chart carefully and recognize, using context, where these substitutions have occurred. Chief Complaint: Abdominal Pain Time Seen by MD: 11:48 Primary Care Provider: Julio Reviewed Notes: Allergies Allergies: Coded Allergies: Latex (Unverified Allergy, Mild, hives, 06/23/23) Lisdexamfetamine (Unverified Adverse Reaction, Severe, Blurry vision, loss of vision, 06/23/23) Aripiprazole (Unverified Adverse Reaction, Intermediate, Drowsy, 06/23/23) Home Meds Active Scripts Sumatriptan Succinate (Imitrex) 50 Mg Tab, 50 MG PO BID, #20 TAB Prov:ADDIE ALBERTS 09/28/24 Famotidine (PEPCID TABLET) 20 Mg Tb, 1 TAB PO BID PRN, #60 TAB 5 Refills Prov:GIGI US MD 07/24/24 Prednisone (Prednisone) 20 Mg Tab, 40 MG PO DAILY, #24 TAB Prov:ADDIE ALBERTS 10/15/23 Baclofen (Baclofen) 10 Mg Tab, 10 MG PO BID, #20 TAB Prov:ADDIE ALBERTS 10/15/23 Ibuprofen Micronized (Ibuprofen) 800 Mg Tab, 800 MG PO Q8HP PRN, #20 TAB Prov:SHANNON HUGHES PAC 08/12/23 Acetaminophen (Acetaminophen) 500 Mg Tab, 500 MG PO Q4HP PRN, #30 TAB Prov:SHANNON HUGHES PAC 08/12/23 Ibuprofen (Ibuprofen) 800 Mg Tab, 1 TAB PO TID, #30 TAB Prov:ADDIE ALBERTS 07/02/23 Lactulose (Lactulose) 10 Gm/15 Ml Елена, 30 ML PO BID PRN, #350 ML Prov:ADDIE ALBERTS 07/02/23 Reported Medications Quetiapine Fumerate (Seroquel) 50 Mg Tab, 50 MG PO HS, TAB 06/23/23 Levetiracetam (Keppra) 500 Mg Tab, 750 MG PO BID, TAB 06/23/23 Paroxetine (PAXIL TABLET) 20 Mg Tb, 10 MG PO BID, TAB 06/23/23 Brexpiprazole (Rexulti) 0.5 Mg Tab, 0.5 MG PO HS, TAB 06/23/23 Information Source: Patient Mode of Arrival: Ambulatory Past Medical History PAST MEDICAL HISTORY: Anxiety, Asthma, Depression, High Lipids, HTN, Seizures Surgical History: Appendectomy Family History Family History: Reviewed,noncontributory to illness, Unknown Social History Smoker: Non-Smoker Alcohol: Denies ETOH Use Drugs: Unknown Lives In: Home Was a procedure done? Was a procedure done?: No GI differential Dx Differential Diagnosis: Other (DDX include but not limited to diverticulitis, colitis, gastroenteritis, acute abdomen, SBO, enteritis, constipation, volvulus, appendicitis, Gallbladder disease, choledocolithiasis, ascending cholangitis, pancreatitis, intraAbdominal mass/neoplasm, hepatitis, UTI, pylonephritis, kidney stone, aneurysm, dissection, Inflammatory bowel disease, gastroparesis, ischemic bowel.) X-Ray, Labs, Meds, VS Vital Signs Date Time Temp Pulse Resp B/P (MAP) Pulse Ox O2 Delivery O2 Flow Rate FiO2 10/05/24 14:04 Room Air* 0 21 10/05/24 14:03 97.9 94 17 144/95 (111) 96 97.9 10/05/24 11:43 98.1 112 16 138/97 98 98.1 Lab Test 10/05/24 12:24 Range/Units White Blood Count 8.0 4.4-10.8 10^3/uL Red Blood Count 6.41 H 4.5-5.90 10^6/uL Hemoglobin 18.9 H 13.5-17.5 g/dL Hematocrit 53.8 H 41.0-53.0 % Mean Corpuscular Volume 83.9 80.0-100.0 fL Mean Corpuscular Hemoglobin 29.5 28.0-32.0 pg Mean Corpuscular Hemoglobin Concent 35.2 32.0-36.0 g/dL Red Cell Distribution Width 14.2 11.8-14.3 % Platelet Count 348 140-450 10^3/uL Mean Platelet Volume 7.0 6.9-10.8 fL Neutrophils (%) (Auto) 63.6 37.0-80.0 % Lymphocytes (%) (Auto) 28.3 10.0-50.0 % Monocytes (%) (Auto) 6.0 0.0-12.0 % Eosinophils (%) (Auto) 1.3 0.0-7.0 % Basophils (%) (Auto) 0.8 0.0-2.0 % Neutrophils # (Auto) 5.1 1.6-8.6 10 ^3/uL Lymphocytes # (Auto) 2.3 0.4-5.4 10 ^3/uL Monocytes # (Auto) 0.5 0-1.3 10 ^3/uL Eosinophils # (Auto) 0.1 0-0.8 10 ^3/uL Basophils # (Auto) 0.1 0-0.2 10 ^3/uL Nucleated Red Blood Cells 0.2 % Sodium Level 138 136-145 mmol/L Potassium Level 4.3 3.5-5.1 mmol/L Chloride Level 102 98-107 mmol/L Carbon Dioxide Level 26 20-31 mmol/L Anion Gap 10 5-15 Blood Urea Nitrogen 13 9-23 mg/dL Creatinine 1.19 0.700-1.30 mg/dL Glomerular Filtration Rate Calc 86 >90 mL/min BUN/Creatinine Ratio 10.9 10.0-20.0 Serum Glucose 92 74-106 mg/dL Lactic Acid Level 1.3 0.4-2.0 mmol/L Calcium Level 10.1 8.7-10.4 mg/dL Total Bilirubin 0.7 0.2-1.0 mg/dL Aspartate Amino Transferase (AST) 41 H 13-40 U/L Alanine Aminotransferase (ALT) 67 H 7-40 U/L Alkaline Phosphatase 58 46-116 U/L Troponin I High Sensitivity < 3 L </=54 ng/L Total Protein 8.1 5.7-8.2 g/dL Albumin 5.5 H 3.2-4.8 g/dL Lipase 79 H 12-53 U/L [place] [address] Ph: [phone] DIAGNOSTIC IMAGING Diagnostic Imaging Report : [id number] Signed PATIENT: ELIUD HUYNH ACCT: [id number] UNIT: [id number] : 1995 LOC: ER ROOM / BED: / AGE / SEX: 29 / M ADM STATUS: REG ER SERVICE 1207 ORDERING PHYSICIAN: LACIE LIN DO PROCEDURE(s): ABPL - CT AB PEL WO CON-NO ORAL OR IV REASON: RUQ PAIN ORDER NUMBER(s): [id number], ACCESSION NUMBER(s): [id number] Indication: RUQ PAIN Technique: CT axial images of the abdomen and pelvis are obtained without contrast. Coronal and sagittal reformats were obtained. Radiation Dose Information: CTDI volume is 19.3 mGy. Dose-length product is 1082 mGy*cm Comparison: None FINDINGS: There is limited interpretation of the abdomen and pelvis without administration of intravenous contrast. The lung bases demonstrate no pleural effusion. Adrenal glands unremarkable. Spleen enlarged measuring 14.5 cm AP. Pancreas, liver unremarkable in shape. Possible cholelithiasis. Kidneys demonstrate no hydronephrosis / nephrolithiasis. Stomach partially distended. Colonic diverticula. Moderate volume stool in the colon. Appendix removed. Bladder partially distended. No free pelvic fluid. Small bilateral fat containing inguinal hernias. No aggressive osseous process. IMPRESSION: Limited evaluation without contrast. Possible cholelithiasis. Colonic diverticular disease. Appendectomy. Splenomegaly. Other findings as described. ATED BY: PAULA MASSEY MD DICTATED DATE/TIME: 10/05/24 124 SIGNED BY: PAULA MASSEY MD SIGNED DATE/TIME: 10/05/24 124 CC: Time of 1ST Reevaluation: 12:55 Reevaluation 1ST: Unchanged Patient Education/Counseling: Diagnosis, Treatment, Prognosis Family Education/Counseling: No Family Present Comments MDM: patient presented with the above HPI.-abdominal pain-----workup was initiated. patient was found with the above mentioned diagnosis. the following medications were ordered: please refer to order lists of meds and tests obtained by myself Dr. Lin. Patient ED course and VS have been stabilized. Patient has been reassessed in [facility] ED and remained in a stable condition. Pertinent incidental findings were discussed with the patient and/or family. Patient/family voices understanding and is agreeable with plan. Patient has been observed in the ED adequate length of time to insure improvement/stability. Escalation of care considered: Consideration of escalation to observation or admission Patient was DISCHARGED home in a stable condition. All the reports of any imaging studies that were ordered by myself were reviewed by myself. SEPSIS Sepsis Screen Date sepsis recognized/suspect: Oct 05, 2024 Time Sepsis recognized/suspect: 1145 Recent Procedure: No On Antibiotic Therapy: No Respiratory Rate >20: No Heart Rate >90: Yes Temp<36 C (96.8 F) or >38.3 C: No SBP <90 or MAP <65 mmHG: No New Acute Mental Status Change: No Is the patient on CPAP, BIPAP,: No Physician Orders Applications Developer (10/05/24 ) Ct Ab Pel Wo Con-No Oral Or Iv (10/05/24 12:07) Electrocardigram (10/05/24 12:07) Vital Signs Date Time Temp Pulse Resp B/P (MAP) Pulse Ox O2 Delivery O2 Flow Rate FiO2 10/05/24 14:04 Room Air* 0 21 10/05/24 14:03 97.9 94 17 144/95 (111) 96 97.9 10/05/24 11:43 98.1 112 16 138/97 98 98.1 Laboratory Tests Test 10/05/24 12:24 Lactic Acid Level 1.3 mmol/L (0.4-2.0) White Blood Count 8.0 10^3/uL (4.4-10.8) Departure 1 Departure Time of Disposition: 13:00 Impression: Primary Impression: Right upper quadrant pain Additional Impression: Cholelithiasis Disposition: HOME / SELF CARE / HOMELESS Condition: Stable Additional Instructions: Additional instructions: Please read all instructions provided in this packet carefully. You MUST follow-up with your primary care/family doctor in 1 to 2 days. If you are unable to see your primary care/family doctor, please return to our emergency room for re-assessment and re-evaluation in 1 to 2 days. Return to the emergency room here in our facility or to the nearest ER [facility] if your symptoms change or worsen. CONSULTATIONS: you MUST Follow-up for consultation as soon as possible with: -gastroenterology and general surgery in 1-2 days. Please call for appointment You MUST call the consultants office yourself to make an appointment. You may need to arrange that through your insurance and/or your primary/family doctor. If you are unable to see the talent acquisition consultant in 1 to 2 days, you must return to our emergency room (or any other ER of your choice) for re-assessment and re- evaluation. Adequate fluid hydration. Although you have been discharged from the Emergency Department, this does not mean that you have a "clean bill of health". No definitive diagnosis for your symptoms has been made today. It is possible that you are in the process of developing a serious illness. This is why you must return to the ED without fail if any new or worsening symptoms develop. Avoid fatty greasy spicy food. Avoid caffeinated products. Avoid NSAIDs. Avoid marijuana. Below is a copy of your radiological report for follow up: [address] [address] Ph: [phone] DIAGNOSTIC IMAGING Diagnostic Imaging Report : [id number] Signed PATIENT: ELIUD UHYNH ACCT: [id number] UNIT: [id number] : 1995 LOC: ER ROOM / BED: / AGE / SEX: 29 / M ADM STATUS: REG ER SERVICE 1207 ORDERING PHYSICIAN: LACIE LIN DO PROCEDURE(s): ABPL - CT AB PEL WO CON-NO ORAL OR IV REASON: RUQ PAIN ORDER NUMBER(s): [id number], ACCESSION NUMBER(s): [id number] Indication: RUQ PAIN Technique: CT axial images of the abdomen and pelvis are obtained without contrast. Coronal and sagittal reformats were obtained. Radiation Dose Information: CTDI volume is 19.3 mGy. Dose-length product is 1082 mGy*cm Comparison: None FINDINGS: There is limited interpretation of the abdomen and pelvis without administration of intravenous contrast. The lung bases demonstrate no pleural effusion. Adrenal glands unremarkable. Spleen enlarged measuring 14.5 cm AP. Pancreas, liver unremarkable in shape. Possible cholelithiasis. Kidneys demonstrate no hydronephrosis / nephrolithiasis. Stomach partially distended. Colonic diverticula. Moderate volume stool in the colon. Appendix removed. Bladder partially distended. No free pelvic fluid. Small bilateral fat containing inguinal hernias. No aggressive osseous process. IMPRESSION: Limited evaluation without contrast. Possible cholelithiasis. Colonic diverticular disease. Appendectomy. Splenomegaly. Other findings as described. ATED BY: PAULA MASSEY MD DICTATED DATE/TIME: 10/05/24 124 SIGNED BY: PAULA MASSEY MD SIGNED DATE/TIME: 10/05/24 1241 CC: Discharged With: Self Critical Care Note Critical Care Time?: No Heart Score Heart Score: Heart Score Response (Comments) Value History N/A 0 EKG N/A 0 Age N/A 0 Risk Factors N/A 0 Troponin N/A 0 Total 0 I personally scribed for LACIE LIN DO ([email or web address]) on 10/05/24 at 12:25. Electronically submitted by Percy Mishra ([employer]). I personally scribed for LACIE LIN DO ([email or web address]) on 10/05/24 at 13:07. Electronically submitted by Percy Mishra ([employer]). LACIE LIN DO Oct 05, 2024 12:25
[2024-10-05 12:40] LABS: Hematocrit 53.8 % (41.0-53.0); Hemoglobin 18.9 g/dL (13.5-17.5); Mean Corpuscular Hemoglobin 29.5 pg (28.0-32.0); Mean Corpuscular Volume 83.9 fL (80.0-100.0); Nucleated Red Blood Cells % 0.2 %
--- NOTE | 2024-10-05 12:40 | DVH ---
Indication: RUQ PAIN Technique: CT axial images of the abdomen and pelvis are obtained without contrast. Coronal and sagit ciara reformats were obtained. Radiation Dose Information: CTDI volume is 19.3 mGy. Dose-length product is 1082 mGy*cm Comparison: None FINDINGS: There is limited interpretation of the abdomen and pelvis without administration of intravenous contr ast. The lung bases demonstrate no pleural effusion. Adrenal glands unremarkable. Spleen enlarged measuring 14.5 cm AP. Pancreas, liver unremarkable in s hape. Possible cholelithiasis. Kidneys demonstrate no hydronephrosis / nephrolithiasis. Stomach partially distended. Colonic diverticula. Moderate volume stool in the colon. Appendix removed. Bladder partially distended. No free pelvic fluid. Small bilateral fat containing inguinal hernias. No aggressive osseous process. IMPRESSION: Limited evaluation without contrast. Possible cholelithiasis. Colonic diverticular disease. Appendectomy. Splenomegaly. Other findings as described.
[2024-10-05 12:49] LABS: Alkaline Phosphatase 58 U/L (46-116); Calcium 10.1 mg/dL (8.7-10.4); Carbon Dioxide 26 mmol/L (20-31); Chloride 102 mmol/L (98-107); Glucose 92 mg/dL (74-106); Potassium 4.3 mmol/L (3.5-5.1)
[2024-10-05 12:50] LABS: Alanine Aminotransferase 67 U/L (7-40); Albumin 5.5 g/dL (3.2-4.8); Anion Gap 10 (5-15); BUN/Creatinine Ratio 10.9 (10.0-20.0); Bilirubin, Total 0.7 mg/dL (0.2-1.0); Blood Urea Nitrogen 13 mg/dL (9-23); Lipase 79 U/L (12-53); Sodium 138 mmol/L (136-145); Total Protein 8.1 g/dL (5.7-8.2)
[2024-10-05 14:03] VITALS: BP 144/95; PULSE 94; RESP 17; TEMP 97.9; O2SAT 96
[2024-10-05] MEDS: PANTOPRAZOLE 40 MG TAB PO ONE (14:07)
[2024-10-05] MEDS: SUCRALFATE 1 GM TAB PO ONE (14:07)
[2024-10-05] MEDS: LIDOCAINE VISCOUS 2% 15ML UD PO ONE (14:07)
== END 2024-10-05 14:07 | disposition home or self-care (01) ==
LOC: ER 11:41
DX: K80.20 Calculus of gallbladder without cholecystitis without obstruction (principal); I10 Essential (primary) hypertension; F32.A Depression, unspecified; F41.9 Anxiety disorder, unspecified; J45.909 Unspecified asthma, uncomplicated; Z79.899 Other long term (current) drug therapy; Z90.49 Acquired absence of other specified parts of digestive tract; Z91.040 Latex allergy status; Z88.8 Allergy status to other drugs, medicaments and biological substances
CPT/HCPCS: 36415; 74176; 80053; 83605; 83690; 84484; 85025